=== PATIENT | male | born 1940 | race Two or more races ===

== ENCOUNTER → 2016-04-20 06:02 | Day surgery (SDC) | payer OTHER ==
[~2016-04-20 06:02] MED LIST: Buffered Lidocaine 1% SYR 3ML* 3 ML/SYR SYRINGE INTRADERM ONE; Buffered Lidocaine 1% SYR 3ML* 3 ML/SYR SYRINGE ONE; Bupivacaine 0.5% SDV PF* 30 ML VIAL ONE; Chloroprocaine 2%* 20 ML VIAL ONE; Dexamethasone IV* 4 MG/ML 1 ML (4 MG) ONE; EPINEPHrine AMP 1 MG/ML ONE; Famotidine IV* 10 MG/ML 2 ML (20 mg) IV ONE; Famotidine IV* 10 MG/ML 2 ML (20 mg) ONE; HYDROmorphone INJ* 1 MG/ML CARPUJECT SYRINGE IV PRN; KETAMINE HCL* 50 MG/ML 10 ML VIAL ONE; Ketorolac INJ* 30 MG/ML 1 ML VIAL ONE; Lidocaine 2% MPF* 2 ML VIAL ONE; Metoclopramide IV* 5 MG/ML 2 ML VIAL IV SLOW PU ONE; Metoclopramide IV* 5 MG/ML 2 ML VIAL ONE; Midazolam* 1 MG/ML 5 ML VIAL (5 MG) ONE; Ondansetron INJ* 2 MG/ML VIAL IV PRN; Ondansetron INJ* 2 MG/ML VIAL ONE; Propofol* 10 MG/ML 20 ML BTL IV PUSH ONE; ceFAZolin 2 GM PREMIX (*) 2 GM/50 ML BAG IVPB ONE; fentaNYL* 50 MCG/ML 2 ML VIAL (100 MCG VIAL) IV PRN; fentaNYL* 50 MCG/ML 2 ML VIAL (100 MCG VIAL) ONE; methylPREDNISolone ACETATE 80* 80 MG/ML 1 ML VIAL ONE; oxyCODONE/Acetamin 5/325 MG* TAB PO PRN
[2016-04-20 09:16] VITALS: BP 120/63
--- NOTE | 2016-04-21 09:59 | OP ---
OPERATIVE REPORT: DATE OF OPERATION: 04/20/16. DATE OF : 40. SURGEON: Alexandria Salinas MD. OUTDOOR STUDIES DIRECTOR: APOORVA Hylton. ANESTHESIOLOGIST: Edwar Henao MD. ANESTHESIA: Spinal. PRE-OP DIAGNOSES: Right knee medial meniscal tear, mild osteoarthritis. POST-OP DIAGNOSES: Right knee posteromedial complex medial meniscal tear, anterior parrot beak type tear of the lateral meniscus, advanced arthritis in the medial and patellofemoral compartments. OPERATIVE PROCEDURE: Right knee arthroscopy with partial lateral meniscectomy and partial medial me niscectomy, anterior synovectomy. COMPLICATIONS: None. SPECIMEN: None. BRIEF HISTORY/INDICATIONS: Mr. Pearson is a gentleman who developed increasingly severe right kne e pain and symptoms of meniscal tear. He failed conservative treatment with activity modification, physical therapy, and antiinflammatories. MRI confirmed a medial meniscal tear which is complex. Du e to continued pain and decreased quality of life, the patient elected to proceed with right knee ar throscopy with partial medial meniscectomy, possible chondroplasty, possible synovectomy. He unders tood the risks of surgery included but were not limited to bleeding, infection, damage to nearby str uctures, continued pain, need for further surgery, stroke, heart attack, blood clot and . He w ished to proceed. INTRAOPERATIVE FINDINGS: Intraoperatively, the patient was noted to have grade 3 and 4 Outerbridge cartilage changes in the medial and patellofemoral compartments. These are severe arthritic changes in the medial patellofemoral compartment. He had a complex displaced tear in the posterior one-thir d of the medial meniscus. He also had a parrot beak type tear along the anterolateral meniscus whic h was also displaced. DESCRIPTION OF PROCEDURE: Mr. Pearson was identified in the preanesthesia unit. His right lower e xtremity was marked as the correct operative side. Informed consent was signed and placed in the art. The patient was taken to the operating room and placed under spinal anesthesia. The right low er extremity was prepped and draped in the usual sterile fashion. Preop time-out was made to [facility] identify the patient's side and site. Appropriate perioperative antibiotics were given within 1 hour of incision. A one-half cm standard anterolateral portal incision was made with a 15 blade and carried down throu gh the capsule. Trocar was introduced. As soon as the light and water sources were turned on, ther e was immediate visualization of the suprapatellar pouch. The joint fluid had bits of cartilage thr oughout which indicated the advanced arthritic changes. A tour of the knee joint was performed. Suprapatellar pouch had no obvious abnormality. Patellofem oral compartment had obvious grade 3 and 4 Outerbridge cartilage changes along the medial patellar f acet and trochlear groove of the femur. There was exposed chondral bone here in a large surface are a. Medial gutter had some synovitis anteriorly, but no loose body. Medial compartment showed expos ed subchondral bone along the majority of the weightbearing portion of the medial femoral condyle. This was grade 3 and 4 Outerbridge cartilage changes. Posteromedial meniscus showed a complex tear o f the posterior horn with anterior displacement. The anterior joint capsule has significant synovit is which made visualization less ideal. ACL appeared to be intact. The euiqni-qi-uyoa position leonie wed lateral compartment with a parrot beak type chronic tear of the anterior lateral meniscus displa joanie anteriorly. No significant degenerative changes in the lateral compartment. Lateral gutters sh owed no obvious loose body or plica. Under direct visualization, a medial portal incision was made with a 15 blade. Probe was introduced and a second tour of the knee joint was performed. No additional findings were noted. Shaver and radiofrequency ablation wand were used to perform an anterior synovectomy at this point. This allowed much better visualization of the meniscal tears and arthritis. The patellofemoral com partment was noted to have much more severe arthritis once this anterior synovectomy was performed. Entirety of the trochlear groove of the femur had exposed subchondral bone. A straight biter was used to perform partial medial meniscectomy. A smooth border was obtained here . Shaver and radiofrequency ablation wand were used to further smooth the edge of the posteromedial meniscus. This involved mainly the white-red zone. No further displaceable fragments were noted u bhavna further probing. Shaver was then used to perform partial lateral meniscectomy. The displaced anterior horn parrot be ak type tear was easily removed in the white-white and white- red zone. There were no large displaceable cartilage flaps. The joint fluid did have a significant amount of small cartilage fragment. A shaver was placed in the suprapatellar pouch and the knee joint was commercial helicopter pilot iously irrigated until these fragments were all removed. The instruments were carefully removed at this point. The incisions were closed using interrupted 3-0 nylon suture. An intraarticular injecti on of 80 mg Depo-Medrol and 6 cc of 0.25% Marcaine was placed in the knee joint. The knee was dress ed with Xeroform, 4x4's and Webril. Warren wrap and cold pack were placed over this. The patient's anesthesia was reversed without difficulty. He was taken to the PACU in stable condit ion. Intended weightbearing will be weightbearing as tolerated. Intended DVT prophylaxis will be aspirin . The patient will follow up in 2 weeks' time for suture removal. [id number]/[facility] #: [id number]
== END | disposition home or self-care (01) ==
LOC: OR 06:02
PROVIDERS: ATTEND Orthopaedic Surgery Adult Reconstructive Orthopaedic Surgery
DX: M23.221 Derangement of posterior horn of medial meniscus due to old tear or injury, right knee (principal); M17.11 Unilateral primary osteoarthritis, right knee; M23.241 Derangement of anterior horn of lateral meniscus due to old tear or injury, right knee; E78.5 Hyperlipidemia, unspecified; Z79.82 Long term (current) use of aspirin; E78.2 Mixed hyperlipidemia
CPT/HCPCS: J0171; J0690; J1040; J1100; J1885; J2250; J2400; J2405; J2704; J2765; J3010

== ENCOUNTER 2016-08-10 08:04 | Day surgery (SDC) | payer OTHER ==
[~2016-08-10 08:04] MED LIST changes: +Acetaminophen TAB* 325 MG PO PRN; -Buffered Lidocaine 1% SYR 3ML* 3 ML/SYR SYRINGE INTRADERM ONE; -Buffered Lidocaine 1% SYR 3ML* 3 ML/SYR SYRINGE ONE; +Buffered Lidocaine 1% SYRIN* 3 ML/SYR SYRINGE INTRADERM ONE; -Bupivacaine 0.5% SDV PF* 30 ML VIAL ONE; -Chloroprocaine 2%* 20 ML VIAL ONE; -Dexamethasone IV* 4 MG/ML 1 ML (4 MG) ONE; -EPINEPHrine AMP 1 MG/ML ONE; -Famotidine IV* 10 MG/ML 2 ML (20 mg) IV ONE; -Famotidine IV* 10 MG/ML 2 ML (20 mg) ONE; -HYDROmorphone INJ* 1 MG/ML CARPUJECT SYRINGE IV PRN; -KETAMINE HCL* 50 MG/ML 10 ML VIAL ONE; -Ketorolac INJ* 30 MG/ML 1 ML VIAL ONE; -Lidocaine 2% MPF* 2 ML VIAL ONE; -Metoclopramide IV* 5 MG/ML 2 ML VIAL IV SLOW PU ONE; -Metoclopramide IV* 5 MG/ML 2 ML VIAL ONE; -Midazolam* 1 MG/ML 5 ML VIAL (5 MG) ONE; -Ondansetron INJ* 2 MG/ML VIAL IV PRN; -Ondansetron INJ* 2 MG/ML VIAL ONE; -Propofol* 10 MG/ML 20 ML BTL IV PUSH ONE; -ceFAZolin 2 GM PREMIX (*) 2 GM/50 ML BAG IVPB ONE; -fentaNYL* 50 MCG/ML 2 ML VIAL (100 MCG VIAL) IV PRN; -fentaNYL* 50 MCG/ML 2 ML VIAL (100 MCG VIAL) ONE; -methylPREDNISolone ACETATE 80* 80 MG/ML 1 ML VIAL ONE; -oxyCODONE/Acetamin 5/325 MG* TAB PO PRN
[2016-08-10] MEDS ORDERED: Tropicamide 1% OPTH.SOL* BTL ONE (08:54)
[2016-08-10] MEDS ORDERED: Lidocaine 1% MPF* 2 ML VIAL ONE (08:54)
[2016-08-10] MEDS ORDERED: Neomycin/Polymy/Dex OPHTH.OIN* 3.5 GM ONE (08:54)
[2016-08-10] MEDS ORDERED: Tetracaine 0.5% OPTH.SOL 4 ML* 1 DROP BTL ONE (08:54)
[2016-08-10] MEDS ORDERED: Flurbiprofen 0.03% OPTH.SOL* 2.5 ML BTL ONE (08:54)
[2016-08-10] MEDS ORDERED: Cyclopentolate 1% OPTH.SOL* 2 ML BTL ONE (08:54)
[2016-08-10] MEDS ORDERED: Phenylephrine 2.5% OPTH.SOL* 2 ML BTL ONE (08:54)
[2016-08-10] MEDS ORDERED: fentaNYL* 50 MCG/ML 2 ML VIAL (100 MCG VIAL) ONE (09:05)
[2016-08-10] MEDS ORDERED: Midazolam* 1 MG/ML 2 ML VIAL (2 MG) ONE (09:10)
[2016-08-10 09:44] VITALS: BP 124/84
--- NOTE | 2016-08-10 22:31 | OP ---
DATE OF OPERATION: 08/10/16 [facility] DATE OF : 40 SURGEON: Franck Martínez MD MULTISENSOR INTELLIGENCE OFFICER: None. ANESTHESIOLOGIST: Landen Benavides MD ANESTHESIA: Topical with intravenous sedation. PRE-OP DIAGNOSIS: Cataract, left eye. POST-OP DIAGNOSIS: Cataract, left eye. OPERATIVE PROCEDURE: Phacoemulsification and cataract extraction with posterior chamber intraocular lens implant, left eye. COMPLICATIONS: None. BLOOD LOSS: None. DESCRIPTION OF PROCEDURE: The patient was brought to the operating room and received a small amount of intravenous sedation. A drop of Tetracaine was placed in his left eye. He as prepped and draped in the usual sterile fashion for ophthalmic surgery and attention was directed to the left eye where a speculum was placed. A paracentesis was created at the 5 o'clock position and 0.1 cc of 1 percent preservative-free Lidocaine was injected into the anterior chamber followed by DisCoVisc. The eye was digitally stabilized while a 2.75 mm keratome was used to create a triplanar clear corneal incision at the 3 o'clock position. A continuous curvilinear capsulorrhexis was created with a cystotome and Utrata forceps. BSS on a cannula was used to hydrodissect the lens from the capsule. Phacoemulsification was performed in a [id number]-feb-[id number] technique to create four fragments which were removed. Residual cortical material was removed with irrigation and aspiration. DisCoVisc was used to inflate the capsular bag and an AU00T0 18.0 diopter lens was folded and inserted into the capsular bag. DisCoVisc was removed using irrigation and aspiration. BSS on a cannula was used to hydrate the corneal stroma and seal the wound. At the end of the case the pupil was round and the lens was centered. The eye was of normal pressure and the wound was water tight. The speculum was removed and topical Maxitrol ointment was placed on the surface of the eye. The eye was closed, patched and shielded and the patient was sent to the recovery room in stable condition with post operative instructions and follow-up appointment given. [id number]/[facility] #: [id number] MTDD
== END 2016-08-10 09:46 | disposition home or self-care (01) ==
LOC: OREAST 08:04
PROVIDERS: ATTEND Ophthalmology
DX: H25.12 Age-related nuclear cataract, left eye (principal); E78.2 Mixed hyperlipidemia; R97.20 Elevated prostate specific antigen [PSA]
CPT/HCPCS: J2250; J3010

== ENCOUNTER 2016-08-17 09:32 | Day surgery (SDC) | payer OTHER ==
[2016-08-17] MEDS ORDERED: Midazolam* 1 MG/ML 2 ML VIAL (2 MG) ONE ×2 (10:34→11:20)
[2016-08-17 11:46] VITALS: BP 142/77
--- NOTE | 2016-08-17 13:09 | OP ---
DATE OF OPERATION/DATE OF DICTATION: 08/17/2016 - [facility] DATE OF : 1940. SURGEON: Dr. Franck Martínez. LOGISTICS SUPPORT: None. ANESTHESIOLOGIST: Courtney Navarro MD ANESTHESIA: Topical with intravenous sedation. PRE-OP DIAGNOSIS: Cataract, right eye. POST-OP DIAGNOSIS: Cataract, right eye. OPERATIVE PROCEDURE: Phacoemulsification and cataract extraction with posterior chamber intraocular lens implant, right eye. COMPLICATIONS: None. BLOOD LOSS: None. DESCRIPTION OF PROCEDURE: The patient was brought to the operating room and received a small amount of intravenous sedation. A drop of Tetracaine was placed in his right eye. He was prepped and draped in the usual sterile fashion for ophthalmic surgery and attention was directed to the right eye where a speculum was placed. A paracentesis was created at the 11 o'clock position and 0.1 cc of 1 percent preservative-free Lidocaine was injected into the anterior chamber followed by DisCoVisc. The eye was digitally stabilized while a 2.75 mm keratome was used to create a triplanar clear corneal incision at the 9 o'clock position. A continuous curvilinear capsulorrhexis was created with a cystotome and Utrata forceps. BSS on a cannula was used to hydrodissect the lens from the capsule. Phacoemulsification was performed in a divide-and- conquer technique to create four fragments which were removed. Residual cortical material was removed with irrigation and aspiration. DisCoVisc was used to inflate the capsular bag and an AUOOTO 19.0 diopter lens was folded and inserted into the capsular bag. DisCoVisc was removed using irrigation and aspiration. BSS on a cannula was used to hydrate the corneal stroma and seal the wound. At the end of the case the pupil was round and the lens was centered. The eye was of normal pressure and the wound was water tight. The speculum was removed and topical Maxitrol ointment was placed on the surface of the eye. The eye was closed, patched and shielded and the patient was sent to the recovery room in stable condition with post operative instructions and follow-up appointment given. [id number]/[facility] #: [id number] MTDD
[2016-08-17] MEDS ORDERED: Cyclopentolate 1% OPTH.SOL* 2 ML BTL ONE (13:25)
[2016-08-17] MEDS ORDERED: Lidocaine 1% MPF* 2 ML VIAL ONE (13:25)
[2016-08-17] MEDS ORDERED: Tropicamide 1% OPTH.SOL* BTL ONE (13:25)
[2016-08-17] MEDS ORDERED: Tetracaine 0.5% OPTH.SOL 4 ML* 1 DROP BTL ONE (13:25)
[2016-08-17] MEDS ORDERED: Flurbiprofen 0.03% OPTH.SOL* 2.5 ML BTL ONE (13:25)
[2016-08-17] MEDS ORDERED: Phenylephrine 2.5% OPTH.SOL* 2 ML BTL ONE (13:25)
[2016-08-17] MEDS ORDERED: Neomycin/Polymy/Dex OPHTH.OIN* 3.5 GM ONE (13:25)
== END 2016-08-17 12:10 | disposition home or self-care (01) ==
LOC: OREAST 09:32
PROVIDERS: ATTEND Ophthalmology
DX: H25.11 Age-related nuclear cataract, right eye (principal); E78.5 Hyperlipidemia, unspecified; R97.20 Elevated prostate specific antigen [PSA]
CPT/HCPCS: A9270-GY; J2250; V2632

== ENCOUNTER 2019-05-14 10:37 | Inpatient (IN) | payer OTHER ==
[2019-05-14] MEDS ORDERED: Magnesium Hydroxide LIQ* 30 ML UDC PO PRN (13:36)
[2019-05-14] MEDS: oxyCODONE TAB* 5 MG TAB PO PRN ×2 (15:43→20:13)
[2019-05-14] MEDS ORDERED: Artificial Tears* 15 ML BTL BOTH EYES PRN (16:19)
[2019-05-14] MEDS: Metoprolol Tartrate TAB* 25 MG PO SCH ×2 (18:28→23:32)
[2019-05-14] MEDS: Methocarbamol TAB* 500 MG PO PRN ×2 (18:28→23:31)
[2019-05-14] MEDS: Atorvastatin* 20 MG TAB PO SCH (18:28)
[2019-05-14] MEDS: Apixaban* 5 MG TAB PO SCH (20:12)
[2019-05-14] MEDS: oxyCODONE SR TAB(*) 10 MG TAB.SR PO SCH (20:12)
[2019-05-14] MEDS: Docusate CAP* 100 MG PO SCH (20:15)
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
[2019-05-14] MEDS: Acetaminophen TAB* 325 MG PO PRN (23:31)
[2019-05-14] MEDS: Zolpidem TAB* 5 MG PO PRN (23:32)
[2019-05-15] MEDS: Metoprolol Tartrate TAB* 25 MG PO SCH ×4 (04:57→23:52)
[2019-05-15] MEDS: Docusate CAP* 100 MG PO SCH ×2 (08:50→20:31)
[2019-05-15] MEDS: Apixaban* 5 MG TAB PO SCH ×2 (08:50→20:31)
[2019-05-15] MEDS: oxyCODONE TAB* 5 MG TAB PO PRN ×3 (08:51→18:06)
[2019-05-15] MEDS: oxyCODONE SR TAB(*) 10 MG TAB.SR PO SCH ×2 (08:51→20:31)
[2019-05-15] MEDS: Pantoprazole TAB * 40 MG TAB PO SCH (08:51)
[2019-05-15] MEDS: Acetaminophen TAB* 325 MG PO PRN ×3 (10:20→23:52)
[2019-05-15] MEDS: Methocarbamol TAB* 500 MG PO PRN ×3 (10:20→23:52)
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
[2019-05-15] MEDS: Atorvastatin* 20 MG TAB PO SCH (17:04)
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
[2019-05-15] MEDS: Senna TAB 8.6 mg* TAB PO PRN (20:31)
[2019-05-15] MEDS: Zolpidem TAB* 5 MG PO PRN (22:17)
[2019-05-16] MEDS: Metoprolol Tartrate TAB* 25 MG PO SCH ×3 (04:59→17:39)
[2019-05-16 06:14] LABS: ABS Eosinophils 0.2 10^3/ul (0-0.6); ABS Lymphocytes 1.3 10^3/ul (1.0-4.8); ABS Monocytes 0.7 10^3/ul (0-0.8); ABS Neutrophils 7.6 10^3/ul (1.5-7.7); Hematocrit 30 % (42-52); Hemoglobin 10.4 g/dL (14.0-18.0); Lymphocyte % 13.2 %; Mean Corpuscular HGB Conc 34 g/dL (31-36); Mean Corpuscular Hemoglobin 31 pg (27-31); Mean Corpuscular Volume 90 fL (80-94); Mean Platelet Volume 7.7 fL (7.4-10.4); Platelet Count 402 10^3/uL (150-450); Red Blood Count 3.36 10^6 /uL (4.18-5.48); Red Cell Distribution Width 13 % (10-15); White Blood Count 9.8 10^3/uL (3.5-10.8)
[2019-05-16 06:31] LABS: Albumin 2.6 g/dL (3.2-5.2); Albumin/Globulin Ratio 0.9 (1-3); BUN/Creatinine Ratio 25.7 (8-20); Calcium 7.6 mg/dL (8.6-10.3); EGFR African American 131.6 (>60); EGFR Non-African American 108.8 (>60); Potassium 4.1 mmol/L (3.5-5.0); Total Bilirubin 1.1 mg/dL (0.2-1.0); Total Protein 5.6 g/dL (6.4-8.9)
[2019-05-16] MEDS: Docusate CAP* 100 MG PO SCH ×2 (08:22→20:46)
[2019-05-16] MEDS: Apixaban* 5 MG TAB PO SCH ×2 (08:22→20:46)
[2019-05-16] MEDS: oxyCODONE SR TAB(*) 10 MG TAB.SR PO SCH ×2 (08:22→20:46)
[2019-05-16] MEDS: Pantoprazole TAB * 40 MG TAB PO SCH (08:23)
[2019-05-16] MEDS: oxyCODONE TAB* 5 MG TAB PO PRN ×3 (08:23→18:06)
[2019-05-16] MEDS: Atorvastatin* 20 MG TAB PO SCH (17:39)
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
[2019-05-16] MEDS: Senna TAB 8.6 mg* TAB PO PRN (20:46)
[2019-05-17] MEDS: Metoprolol Tartrate TAB* 25 MG PO SCH ×4 (00:56→18:30)
[2019-05-17] MEDS: Acetaminophen TAB* 325 MG PO PRN ×2 (05:44→14:23)
[2019-05-17] MEDS: Methocarbamol TAB* 500 MG PO PRN ×2 (05:44→14:22)
[2019-05-17] MEDS: oxyCODONE TAB* 5 MG TAB PO PRN ×2 (08:38→15:21)
[2019-05-17] MEDS: oxyCODONE SR TAB(*) 10 MG TAB.SR PO SCH ×2 (08:38→20:44)
[2019-05-17] MEDS: Docusate CAP* 100 MG PO SCH ×2 (08:39→20:44)
[2019-05-17] MEDS: Pantoprazole TAB * 40 MG TAB PO SCH (08:39)
[2019-05-17] MEDS: Apixaban* 5 MG TAB PO SCH ×2 (08:39→20:44)
[2019-05-17] MEDS: Atorvastatin* 20 MG TAB PO SCH (17:50)
[2019-05-17] MEDS ORDERED: Polyethylene Glycol 3350* 17 GM PACKET PO PRN (20:38)
[2019-05-17] MEDS: Senna TAB 8.6 mg* TAB PO PRN (20:44)
[2019-05-17] MEDS: Zolpidem TAB* 5 MG PO PRN (20:48)
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
[2019-05-18] MEDS: Metoprolol Tartrate TAB* 25 MG PO SCH ×4 (00:12→18:00)
[2019-05-18] MEDS: Acetaminophen TAB* 325 MG PO PRN (02:55)
[2019-05-18] MEDS: Pantoprazole TAB * 40 MG TAB PO SCH (09:37)
[2019-05-18] MEDS: Apixaban* 5 MG TAB PO SCH ×2 (09:37→21:10)
[2019-05-18] MEDS: Docusate CAP* 100 MG PO SCH ×2 (09:37→21:10)
[2019-05-18] MEDS: oxyCODONE SR TAB(*) 10 MG TAB.SR PO SCH ×2 (09:37→21:10)
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
[2019-05-18] MEDS: Atorvastatin* 20 MG TAB PO SCH (18:01)
[2019-05-18] MEDS: oxyCODONE TAB* 5 MG TAB PO PRN (19:52)
[2019-05-18] MEDS: Cephalexin CAP* 500 MG PO SCH (22:07)
[2019-05-18] MEDS: Zolpidem TAB* 5 MG PO PRN (22:07)
[2019-05-19] MEDS: Metoprolol Tartrate TAB* 25 MG PO SCH ×4 (00:58→17:44)
[2019-05-19] MEDS: oxyCODONE TAB* 5 MG TAB PO PRN ×3 (03:05→17:44)
[2019-05-19] MEDS: Cephalexin CAP* 500 MG PO SCH ×3 (06:24→21:53)
[2019-05-19] MEDS: Pantoprazole TAB * 40 MG TAB PO SCH (08:44)
[2019-05-19] MEDS: Apixaban* 5 MG TAB PO SCH ×2 (08:45→20:27)
[2019-05-19] MEDS: oxyCODONE SR TAB(*) 10 MG TAB.SR PO SCH ×2 (08:45→20:27)
[2019-05-19] MEDS: Docusate CAP* 100 MG PO SCH ×2 (08:48→20:27)
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
[2019-05-19] MEDS: Atorvastatin* 20 MG TAB PO SCH (17:44)
[2019-05-19] MEDS ORDERED: Glycerin ADULT SUPP PR PRN (17:58)
[2019-05-19] MEDS: Acetaminophen TAB* 325 MG PO PRN (21:57)
[2019-05-19] MEDS: Zolpidem TAB* 5 MG PO PRN (21:57)
[2019-05-20] MEDS: Metoprolol Tartrate TAB* 25 MG PO SCH ×4 (00:54→18:04)
[2019-05-20] MEDS: Cephalexin CAP* 500 MG PO SCH ×3 (05:52→20:47)
[2019-05-20] MEDS: oxyCODONE SR TAB(*) 10 MG TAB.SR PO SCH ×2 (08:40→20:44)
[2019-05-20] MEDS: Docusate CAP* 100 MG PO SCH ×2 (08:40→20:44)
[2019-05-20] MEDS: Pantoprazole TAB * 40 MG TAB PO SCH (08:41)
[2019-05-20] MEDS: Apixaban* 5 MG TAB PO SCH ×2 (08:41→20:44)
[2019-05-20] MEDS: Acetaminophen TAB* 325 MG PO PRN (13:52)
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
[2019-05-20] MEDS: Methocarbamol TAB* 500 MG PO PRN (18:04)
[2019-05-20] MEDS: Atorvastatin* 20 MG TAB PO SCH (18:04)
[2019-05-20] MEDS: oxyCODONE TAB* 5 MG TAB PO PRN (20:44)
[2019-05-20] MEDS: Zolpidem TAB* 5 MG PO PRN (22:27)
[2019-05-21] MEDS: Metoprolol Tartrate TAB* 25 MG PO SCH ×5 (00:51→21:53)
[2019-05-21] MEDS: Cephalexin CAP* 500 MG PO SCH ×3 (06:15→21:52)
[2019-05-21] MEDS: Docusate CAP* 100 MG PO SCH ×2 (08:58→21:52)
[2019-05-21] MEDS: Pantoprazole TAB * 40 MG TAB PO SCH (08:58)
[2019-05-21] MEDS: Apixaban* 5 MG TAB PO SCH ×2 (08:58→21:53)
[2019-05-21] MEDS: Methocarbamol TAB* 500 MG PO PRN ×3 (08:59→18:17)
[2019-05-21] MEDS: oxyCODONE SR TAB(*) 10 MG TAB.SR PO SCH ×2 (09:00→21:53)
[2019-05-21] MEDS: Acetaminophen TAB* 325 MG PO PRN ×2 (12:19→17:53)
[2019-05-21] MEDS: Atorvastatin* 20 MG TAB PO SCH (17:40)
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
[2019-05-21] MEDS: Senna TAB 8.6 mg* TAB PO PRN (21:52)
[2019-05-21] MEDS: Zolpidem TAB* 5 MG PO PRN (21:53)
[2019-05-22] MEDS: Cephalexin CAP* 500 MG PO SCH ×3 (05:55→21:53)
[2019-05-22] MEDS: Metoprolol Tartrate TAB* 25 MG PO SCH ×3 (05:55→21:53)
[2019-05-22] MEDS: Docusate CAP* 100 MG PO SCH ×2 (09:17→21:53)
[2019-05-22] MEDS: Apixaban* 5 MG TAB PO SCH ×2 (09:17→21:53)
[2019-05-22] MEDS: Methocarbamol TAB* 500 MG PO PRN ×2 (09:18→13:19)
[2019-05-22] MEDS: oxyCODONE SR TAB(*) 10 MG TAB.SR PO SCH ×2 (09:18→21:53)
[2019-05-22] MEDS: Pantoprazole TAB * 40 MG TAB PO SCH (09:18)
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
[2019-05-22] MEDS: Acetaminophen TAB* 325 MG PO PRN (13:20)
[2019-05-22] MEDS: oxyCODONE TAB* 5 MG TAB PO PRN (15:08)
[2019-05-22] MEDS: Atorvastatin* 20 MG TAB PO SCH (17:35)
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
[2019-05-22] MEDS: Zolpidem TAB* 5 MG PO PRN (21:53)
[2019-05-23 05:48] LABS: ABS Basophils 0.1 10^3/ul (0-0.2); ABS Eosinophils 0.2 10^3/ul (0-0.6); ABS Lymphocytes 1.6 10^3/ul (1.0-4.8); ABS Monocytes 0.6 10^3/ul (0-0.8); ABS Neutrophils 4.3 10^3/ul (1.5-7.7); Eosinophil % 2.7 %; Hematocrit 29 % (42-52); Hemoglobin 9.8 g/dL (14.0-18.0); Lymphocyte % 24.1 %; Mean Corpuscular HGB Conc 33 g/dL (31-36); Mean Corpuscular Hemoglobin 30 pg (27-31); Mean Corpuscular Volume 89 fL (80-94); Mean Platelet Volume 7.5 fL (7.4-10.4); Nucleated Red Blood Cells % 0.1; Platelet Count 481 10^3/uL (150-450); Red Blood Count 3.28 10^6 /uL (4.18-5.48); Red Cell Distribution Width 13 % (10-15); White Blood Count 6.8 10^3/uL (3.5-10.8)
[2019-05-23] MEDS: Metoprolol Tartrate TAB* 25 MG PO SCH ×3 (05:48→21:08)
[2019-05-23] MEDS: Cephalexin CAP* 500 MG PO SCH ×3 (05:48→21:08)
[2019-05-23 06:00] LABS: Albumin 2.6 g/dL (3.2-5.2); Albumin/Globulin Ratio 0.9 (1-3); BUN/Creatinine Ratio 18.9 (8-20); Calcium 7.7 mg/dL (8.6-10.3); EGFR African American 123.5 (>60); Potassium 4.1 mmol/L (3.5-5.0); Total Bilirubin 0.8 mg/dL (0.2-1.0); Total Protein 5.6 g/dL (6.4-8.9)
[2019-05-23] MEDS: Pantoprazole TAB * 40 MG TAB PO SCH (08:46)
[2019-05-23] MEDS: Apixaban* 5 MG TAB PO SCH ×2 (08:46→21:11)
[2019-05-23] MEDS: Docusate CAP* 100 MG PO SCH ×2 (08:46→21:08)
[2019-05-23] MEDS: oxyCODONE SR TAB(*) 10 MG TAB.SR PO SCH ×2 (08:46→21:09)
[2019-05-23] MEDS: Methocarbamol TAB* 500 MG PO PRN (08:49)
[2019-05-23] MEDS: Acetaminophen TAB* 325 MG PO PRN (10:20)
[2019-05-23] MEDS: oxyCODONE TAB* 5 MG TAB PO PRN (14:52)
[2019-05-23] MEDS: Atorvastatin* 20 MG TAB PO SCH (16:55)
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
[2019-05-23] MEDS: Zolpidem TAB* 5 MG PO PRN (21:14)
[2019-05-24] MEDS: Metoprolol Tartrate TAB* 25 MG PO SCH ×3 (05:53→21:23)
[2019-05-24] MEDS: Cephalexin CAP* 500 MG PO SCH ×3 (05:53→21:23)
[2019-05-24] MEDS: Methocarbamol TAB* 500 MG PO PRN (06:22)
[2019-05-24] MEDS: oxyCODONE SR TAB(*) 10 MG TAB.SR PO SCH ×2 (09:09→21:23)
[2019-05-24] MEDS: Pantoprazole TAB * 40 MG TAB PO SCH (09:09)
[2019-05-24] MEDS: Apixaban* 5 MG TAB PO SCH ×2 (09:09→21:23)
[2019-05-24] MEDS: Docusate CAP* 100 MG PO SCH ×2 (09:09→21:24)
[2019-05-24] MEDS: Atorvastatin* 20 MG TAB PO SCH (17:32)
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
[2019-05-24] MEDS: Senna TAB 8.6 mg* TAB PO PRN (21:24)
[2019-05-24] MEDS: Zolpidem TAB* 5 MG PO PRN (21:31)
[2019-05-25] MEDS: Metoprolol Tartrate TAB* 25 MG PO SCH ×3 (06:12→20:59)
[2019-05-25] MEDS: Docusate CAP* 100 MG PO SCH ×2 (09:05→20:59)
[2019-05-25] MEDS: Pantoprazole TAB * 40 MG TAB PO SCH (09:05)
[2019-05-25] MEDS: Apixaban* 5 MG TAB PO SCH ×2 (09:05→20:59)
[2019-05-25] MEDS: oxyCODONE SR TAB(*) 10 MG TAB.SR PO SCH ×2 (09:06→20:59)
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
[2019-05-25] MEDS: Acetaminophen TAB* 325 MG PO PRN (12:52)
[2019-05-25] MEDS: Methocarbamol TAB* 500 MG PO PRN (12:54)
[2019-05-25] MEDS: CMCS: Diclofenac 1% GEL (NF) 100 GM TUBE TOPICAL PRN (14:41)
[2019-05-25] MEDS: Atorvastatin* 20 MG TAB PO SCH (17:04)
[2019-05-25] MEDS: Zolpidem TAB* 5 MG PO PRN (20:59)
[2019-05-25] MEDS: Senna TAB 8.6 mg* TAB PO PRN (21:00)
[2019-05-26] MEDS: Metoprolol Tartrate TAB* 25 MG PO SCH ×3 (05:35→21:28)
[2019-05-26] MEDS: CMCS: Diclofenac 1% GEL (NF) 100 GM TUBE TOPICAL PRN ×2 (08:23→14:22)
[2019-05-26] MEDS: oxyCODONE SR TAB(*) 10 MG TAB.SR PO SCH ×2 (09:32→21:27)
[2019-05-26] MEDS: Pantoprazole TAB * 40 MG TAB PO SCH (09:32)
[2019-05-26] MEDS: Apixaban* 5 MG TAB PO SCH ×2 (09:32→21:26)
[2019-05-26] MEDS: Docusate CAP* 100 MG PO SCH ×2 (09:32→21:26)
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
[2019-05-26] MEDS: Atorvastatin* 20 MG TAB PO SCH (18:01)
[2019-05-26] MEDS: Zolpidem TAB* 5 MG PO PRN (21:28)
[2019-05-27] MEDS: Metoprolol Tartrate TAB* 25 MG PO SCH ×3 (05:59→21:50)
[2019-05-27] MEDS: Apixaban* 5 MG TAB PO SCH ×2 (09:47→21:50)
[2019-05-27] MEDS: Docusate CAP* 100 MG PO SCH ×2 (09:47→23:01)
[2019-05-27] MEDS: Pantoprazole TAB * 40 MG TAB PO SCH (09:47)
[2019-05-27] MEDS: oxyCODONE SR TAB(*) 10 MG TAB.SR PO SCH ×2 (09:47→21:50)
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
[2019-05-27] MEDS: CMCS: Diclofenac 1% GEL (NF) 100 GM TUBE TOPICAL PRN ×2 (10:05→14:44)
[2019-05-27] MEDS: Atorvastatin* 20 MG TAB PO SCH (18:13)
[2019-05-27] MEDS: Zolpidem TAB* 5 MG PO PRN (21:50)
[2019-05-27] MEDS: Docusate LIQ* 100 MG/10 ML UDC PO SCH (21:56)
[2019-05-27] MEDS ORDERED: Docusate LIQ* 100 MG/10 ML UDC PO SCH (22:00)
[2019-05-28] MEDS: Metoprolol Tartrate TAB* 25 MG PO SCH ×3 (05:38→21:26)
[2019-05-28] MEDS: Apixaban* 5 MG TAB PO SCH ×2 (09:55→21:26)
[2019-05-28] MEDS: oxyCODONE SR TAB(*) 10 MG TAB.SR PO SCH ×2 (09:55→21:27)
[2019-05-28] MEDS: Docusate LIQ* 100 MG/10 ML UDC PO SCH ×2 (09:57→21:34)
[2019-05-28] MEDS: Pantoprazole TAB * 40 MG TAB PO SCH (09:58)
[2019-05-28] MEDS: CMCS: Diclofenac 1% GEL (NF) 100 GM TUBE TOPICAL PRN (14:43)
[2019-05-28] MEDS: Atorvastatin* 20 MG TAB PO SCH (17:08)
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
[2019-05-28] MEDS: Zolpidem TAB* 5 MG PO PRN (21:26)
[2019-05-28] MEDS: Senna TAB 8.6 mg* TAB PO PRN (21:27)
[2019-05-29] MEDS: Metoprolol Tartrate TAB* 25 MG PO SCH ×2 (05:50→14:00)
[2019-05-29] MEDS: oxyCODONE SR TAB(*) 10 MG TAB.SR PO SCH (08:56)
[2019-05-29] MEDS: Docusate LIQ* 100 MG/10 ML UDC PO SCH (08:56)
[2019-05-29] MEDS: Apixaban* 5 MG TAB PO SCH (08:56)
[2019-05-29] MEDS: Pantoprazole TAB * 40 MG TAB PO SCH (08:56)
[2019-05-29] MEDS: CMCS: Diclofenac 1% GEL (NF) 100 GM TUBE TOPICAL PRN ×2 (08:57→14:00)
[2019-05-29 14:04] VITALS: BP 114/55
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
== END 2019-05-29 16:30 | disposition home health service (06) | DRG 860 ==
LOC: PMRU 13:08
PROVIDERS: ADMIT Physical Medicine & Rehabilitation; ATTEND Physical Medicine & Rehabilitation
PROC: F07Z5ZZ Bed Mobility Treatment (ICD-10-PCS; principal; 2019-05-14)
PROC: F07Z9ZZ Gait Training/Functional Ambulation Treatment (ICD-10-PCS; 2019-05-14)
PROC: F07Z8ZZ Transfer Training Treatment (ICD-10-PCS; 2019-05-14)
PROC: F08Z0ZZ Bathing/Showering Techniques Treatment (ICD-10-PCS; 2019-05-14)
PROC: F08Z1ZZ Dressing Techniques Treatment (ICD-10-PCS; 2019-05-14)
PROC: F08Z3ZZ Feeding/Eating Treatment (ICD-10-PCS; 2019-05-14)
PROC: F08Z2ZZ Grooming/Personal Hygiene Treatment (ICD-10-PCS; 2019-05-14)
PROC: F06ZDZZ Swallowing Dysfunction Treatment (ICD-10-PCS; 2019-05-14)
DX: S22.43XD Multiple fractures of ribs, bilateral, subsequent encounter for fracture with routine healing (principal); J98.11 Atelectasis; J90 Pleural effusion, not elsewhere classified; S27.2XXD Traumatic hemopneumothorax, subsequent encounter; S42.111D Displaced fracture of body of scapula, right shoulder, subsequent encounter for fracture with routine healing; S22.018D Other fracture of first thoracic vertebra, subsequent encounter for fracture with routine healing; S32.058D Other fracture of fifth lumbar vertebra, subsequent encounter for fracture with routine healing; S32.512D Fracture of superior rim of left pubis, subsequent encounter for fracture with routine healing; S32.511D Fracture of superior rim of right pubis, subsequent encounter for fracture with routine healing; S91.002D Unspecified open wound, left ankle, subsequent encounter; V03.10XD Pedestrian on foot injured in collision with car, pick-up truck or van in traffic accident, subsequent encounter; I48.91 Unspecified atrial fibrillation; R13.10 Dysphagia, unspecified; M79.89 Other specified soft tissue disorders; M25.561 Pain in right knee
CPT/HCPCS: 36415; 71046; 72170; 80053; 85025; A9270-GY